=== PATIENT | male | born 1955 | race Caucasian/White ===

== ENCOUNTER 2017-11-14 18:01 | Inpatient (IN) | payer MEDICARE, OTHER ==
[~2017-11-14] VITALS: Ht 167.6 cm; Wt 68.0 kg
[2017-11-14 18:20] VITALS: BP 154/80
[2017-11-14 18:57] LABS: BASOPHILS # (AUTO) 0.7 /CMM (0.0-0.2); BASOPHILS % (AUTO) 2.8 % (0.0-2.0); EOSINOPHILS # (AUTO) 0.1 /CMM (0.0-0.7); EOSINOPHILS % (AUTO) 0.3 % (0.0-6.0); HEMATOCRIT 31 % (39-51); HEMOGLOBIN 10.7 g/dL (13.5-17.5); LYMPHOCYTES # (AUTO) 1.7 /CMM (0.8-4.8); LYMPHOCYTES % (AUTO) 7.4 % (20.0-44.0); MEAN CORPUSCULAR HEMOGLOBIN 30 PG (26.0-33.0); MEAN CORPUSCULAR HGB CONC 35 g/dl (31.0-36.0); MEAN CORPUSCULAR VOLUME 86 fL (80-96); MONOCYTES # (AUTO) 1.5 /CMM (0.1-1.30); MONOCYTES % (AUTO) 6.4 % (2.0-12.0); NEUTROPHILS # (AUTO) 19.5 /CMM (1.8-8.9); NEUTROPHILS % (AUTO) 83.1 % (43.0-81.0); PLATELET COUNT (AUTO) 498 /CMM (150-450); RDW COEFFICIENT OF VARIATION 15.3 (11.5-15.0); RED BLOOD CELL COUNT(AUTO) 3.61 MIL/uL (4.5-6.0); WHITE BLOOD COUNT (AUTO) 23.5 K/uL (4.3-11.0)
--- NOTE | 2017-11-14 18:58 | NUR ---
XRAY AT BEDSIDE
[2017-11-14] MEDS ORDERED: IV NS 0.9% 1,000 ML BAG IV ONE (19:00)
--- NOTE | 2017-11-14 19:00 | NUR ---
PRINCIPAL SCIENTIST AT BEDSIDE
[2017-11-14 19:08] LABS: CALCIUM, SERUM 9.8 mg/dL (8.5-10.1); CARBON DIOXIDE 28 mmol/L (21-32); CHLORIDE 94 mmol/L (98-107); CREATININE 1.3 mg/dL (0.6-1.3); GLUCOSE 109 mg/dL (74-106); POTASSIUM 5.4 mmol/L (3.5-5.1); SODIUM SERUM 129 mmol/L (136-145); UREA NITROGEN, BLOOD 61 mg/dL (7-18)
[2017-11-14 19:11] LABS: INR 0.94 (0.85-1.15)
[2017-11-14 19:13] LABS: ALANINE AMINOTRANSFERASE 57 U/L (12-78); ALBUMIN 3.1 g/dL (3.4-5.0); ALKALINE PHOSPHATASE 131 U/L (46-116); ASPARTATE AMINOTRANSFERASE 34 U/L (15-37); BILIRUBIN,DIRECT 0.1 mg/dL (0.0-0.2); BILIRUBIN,TOTAL 0.3 mg/dL (0.2-1.0); LIPASE 80 U/L (73-393); TOTAL PROTEIN, SERUM 8.6 g/dL (6.4-8.2)
[2017-11-14 19:15] LABS: TROPONIN I < 0.017 ng/mL (0.00-0.056)
[2017-11-14] MEDS ORDERED: ONDANSETRON HCL/PF 4 MG/2 ML VIAL ONE (19:17)
[2017-11-14] MEDS ORDERED: PIPERACILLIN /TAZOBACTAM 3.375 G VIAL IV ONE (19:17)
[2017-11-14] MEDS ORDERED: MORPHINE SULFATE INJ 4 MG/ML DISP.SYRIN ONE (19:18)
[2017-11-14] MEDS ORDERED: ONDANSETRON HCL/PF 4 MG/2 ML VIAL IV ONE (19:30)
[2017-11-14] MEDS ORDERED: MORPHINE SULFATE INJ 4 MG/ML DISP.SYRIN IV ONE (19:30)
[2017-11-14] MEDS ORDERED: PIPERACILLIN /TAZOBACTAM 3.375 G in IV D5W 50 ML IV ONE (19:30)
[2017-11-14 19:32] LABS: BAND % (MANUAL) 13 % (0.0-5.0); EOSINOPHILS % (MANUAL) 2 % (0-4); LYMPHOCYTES % (MANUAL) 10 % (16-48); MONOCYTES % (MANUAL) 6 % (0-11.0); NEUTROPHILS % (MANUAL) 69 (42-76)
--- NOTE | 2017-11-14 19:34 | NUR ---
PT OFF TO CT WITH NASCAR DRIVER AND RT
[2017-11-14] MEDS ORDERED: DOCU50LI GT (19:36)
[2017-11-14] MEDS ORDERED: ALPR0.25 GT (19:36)
[2017-11-14] MEDS ORDERED: HYDR-552 GT (19:36)
[2017-11-14] MEDS ORDERED: OLAN5TAB3 GT (19:36)
[2017-11-14] MEDS ORDERED: MELA1TAB9 PO (19:36)
[2017-11-14] MEDS ORDERED: LATA2.5D7 EACHEYE (19:36)
[2017-11-14 20:23] VITALS: BP 147/73
[2017-11-14] MEDS ORDERED: MAG HYDROX/AL HYDROX/SIMETH 30 ML UDC PO PRN (20:30)
[2017-11-14] MEDS ORDERED: ONDANSETRON HCL/PF 4 MG/2 ML VIAL IVP PRN (20:30)
[2017-11-14] MEDS ORDERED: MAGNESIUM HYDROXIDE 30 ML UDC PO PRN (20:30)
--- NOTE | 2017-11-14 20:31 | NUR ---
NO URINE IN VALERA CATH INTACT. FLUSHED GT WITH 100 CC OF STERILE WATER. AWAITING URINE PRODUCTION FOR LAB BLUEPRINT MACHINE OPERATOR
--- NOTE | 2017-11-14 21:00 | NUR ---
RN NOTE RECEIVED REPORT FROM RICH WALKER FOR CONTINUITY OF CARE.
--- NOTE | 2017-11-14 21:10 | NUR ---
RN NOTE ENDORSE REPORT TO NILAY WALKER FOR CONTINUITY OF CARE.
[2017-11-14] MEDS: ALPRAZOLAM 0.25 MG TABLET GT PRN (21:34)
[2017-11-14] MEDS: ACETAMINOPHEN 650 MG/20.3 ML UDC PO PRN (21:34)
[2017-11-14] MEDS: OLANZAPINE 5 MG TABLET GT SCH (21:34)
--- NOTE | 2017-11-14 21:50 | NUR ---
RN INITIAL NOTE RECEIVED PATIENT IN NO ACUTE DISTRESS IN BED, NO CARDIAC OR RESPIRATORY DISTRESS NOTED. PATIENT ON MECHANICAL VENT VIA TRACH, SETTINGS ORDERED. PATIENT AOX2, ABLE TO MOUTH RESPONSES, REPORTING PAIN HAS MORPHINE PUMP IMPLANT IN PLACE, BUT PATIENT MOUTHING PUMP IS NOT WORKING. VALERA CATHETER CLEAN DRY AND INTACT, COLOSTOMY DRAINING BROWN, SOFT STOOL, PEG TUBE FLUSHING WELL, CURRENTLY NPO. R FOOT #20G IV PATENT FLUSHES WELL, SITE CLEAN, DRY AND INTACT. SAFETY MAINTAINED BED LOCKED IN LOW POSITION, SIDE RAILS X3, CALL LIGHT AT BEDSIDE, WILL CONTINUE TO MONITOR FOR TALHA.
[2017-11-14] MEDS ORDERED: Medication Not On Formulary EA (Melatonin 1 MG) PO SCH (22:00)
[2017-11-14] MEDS: LATANOPROST EYE DROP 0.005% 2.5 ML BOTTLE EACHEYE SCH (22:17)
[2017-11-14] MEDS: ZOLPIDEM TARTRATE 5 MG TABLET PO PRN (23:21)
[2017-11-14] MEDS: IV NS 0.9% 1,000 ML IV PRN (23:22)
[2017-11-14] MEDS: PIPERACILLIN /TAZOBACTAM 3.375 G in IV D5W 50 ML IV SCH (23:23)
[2017-11-15] VITALS: BP 92/41
[2017-11-15] MEDS: MORPHINE SULFATE INJ 4 MG/ML DISP.SYRIN IV PRN ×2 (02:10→10:25)
[2017-11-15 04:00] VITALS: BP_SYST 112; BP_SYST 158; BP_DIAS 74; BP_DIAS 84
[2017-11-15] MEDS: ACETAMINOPHEN 650 MG/20.3 ML UDC PO PRN (05:15)
[2017-11-15] MEDS: PIPERACILLIN /TAZOBACTAM 3.375 G in IV D5W 50 ML IV SCH ×4 (05:15→23:39)
--- NOTE | 2017-11-15 06:43 | NUR ---
RN CLOSING NOTE PATIENT RESTING COMFORTABLY IN BED, RESTLESS DURING SHIFT PT GIVEN PRN MEDICATION FOR ANXIETY, NEEDS REINFORCEMENT ON RELAXATION TECHNIQUES. NO RESPIRATORY DISTRESS NOTED, TRACH TO VENT ON SETTINGS ORDERED. SAFETY MAINTAINED BED IN LOW AND LOCKED POSITION. WILL ENDORSE REPORT TO AM RN FOR TALHA.
--- NOTE | 2017-11-15 07:15 | NUR ---
RN INITIAL NOTES: REC'D PT AWAKE ON BED, A/O X 2-3, ABLE TO MOUTH WORDS. ON MV VIA TRACH, NO SOB. ON TELEMONITOR, SR. HAS R FT G20, PL, PATENT & INTACT W/ NO S/SX OF INFECTION/INFILTRATION NOTED, W/ NS X 100 CC/HR INFUSING WELL. HAS GT CLAMPED AT THIS TIME. HAS FC, NO URINE OUTPUT NOTED. HAS COLOSTOMY BAG IN PLACE. PROVIDED COMFORT & SAFETY MEASURES. BED KEPT LOW & IN LOCKED POS. CALL LIGHT PLACED W/IN REACH. WILL CONTINUE TO MONITOR & ATTEND PT NEEDS.
[2017-11-15 08:00] VITALS: BP_SYST 122; BP_SYST 128; BP_DIAS 71; BP_DIAS 81
[2017-11-15] MEDS: PANTOPRAZOLE 40 MG VIAL IV SCH (08:54)
[2017-11-15] MEDS: DOCUSATE SODIUM LIQ 100 MG/10 ML UDC GT SCH ×2 (08:54→17:06)
[2017-11-15] MEDS: Z GUARD REMEDY 2 OZ OINT TP PRN (08:54)
[2017-11-15 08:57] LABS: ALBUMIN 2.4 g/dL (3.4-5.0); BILIRUBIN,DIRECT 0.3 mg/dL (0.0-0.2); BILIRUBIN,TOTAL 0.6 mg/dL (0.2-1.0); CALCIUM, SERUM 8.9 mg/dL (8.5-10.1); CREATININE 1.6 mg/dL (0.6-1.3); MAGNESIUM 2.7 mg/dL (1.8-2.4); POTASSIUM 5.8 mmol/L (3.5-5.1); TOTAL PROTEIN, SERUM 7.4 g/dL (6.4-8.2)
[2017-11-15 09:07] LABS: BASOPHILS % (AUTO) 0.3 % (0.0-2.0); EOSINOPHILS % (AUTO) 0.1 % (0.0-6.0); HEMATOCRIT 26 % (39-51); HEMOGLOBIN 8.7 g/dL (13.5-17.5); LYMPHOCYTES # (AUTO) 0.9 /CMM (0.8-4.8); LYMPHOCYTES % (AUTO) 5.7 % (20.0-44.0); MEAN CORPUSCULAR HEMOGLOBIN 29 PG (26.0-33.0); MEAN CORPUSCULAR HGB CONC 33 g/dl (31.0-36.0); MEAN CORPUSCULAR VOLUME 87 fL (80-96); MONOCYTES # (AUTO) 1.3 /CMM (0.1-1.30); MONOCYTES % (AUTO) 8.4 % (2.0-12.0); NEUTROPHILS # (AUTO) 12.7 /CMM (1.8-8.9); NEUTROPHILS % (AUTO) 85.5 % (43.0-81.0); PLATELET COUNT (AUTO) 308 /CMM (150-450); RDW COEFFICIENT OF VARIATION 16.1 (11.5-15.0); RED BLOOD CELL COUNT(AUTO) 3.02 MIL/uL (4.5-6.0); WHITE BLOOD COUNT (AUTO) 14.9 K/uL (4.3-11.0)
[2017-11-15] MEDS: IV NS 0.9% 1,000 ML IV PRN (10:25)
--- NOTE | 2017-11-15 11:00 | NUR ---
RN NOTES: PT SEEN & EXAMINED BY DR. SOLER W/ ORDERS MADE & CARRIED OUT. MD MADE AWARE RE: NO URINE OUTPUT. BLADDER SCAN DONE, >300 CC. FC REMOVED AND REPLACED A NEW ONE PER MD'S ORDER, + URINE OF >600 CC. EPISODE OF HYPOTENSION, BP 84/64. MD MADE AWARE PER MD, KEEP NPO FOR NOW EXCEPT MEDS. MD TO REVIEW PT'S CASE.
[2017-11-15] MEDS ORDERED: SODIUM POLYSTYRENE SULFONATE 15 G/60 ML BOTTLE PO ONE (11:30)
[2017-11-15 12:00] VITALS: BP 102/64
--- NOTE | 2017-11-15 14:39 | NUR ---
RN NOTES: DR. SOLER ORDERS MADE AND CARRIED OUT: - HEPARIN 5000 UNITS SQ Q12H - DECREASE DOSE OF MOSO4 TO 1 MG IVP Q4H PRN - START TUBE FEEDING GLYTROL X 60CC/HR - DO SPUTUM, URINE, AND WOUND CULTURE - SLIDING SCALE (MILD) Q6H WHILE ON TF - WOUND CARE CONSULT
[2017-11-15 14:55] LABS: IRON, SERUM 10 ug/dl (50-175); TOTAL IRON BINDING CAPACITY 195 ug/dl (250-450)
[2017-11-15] MEDS ORDERED: GLYTROL 1,000 ML BAG GT PRN (15:00)
[2017-11-15] MEDS ORDERED: DEXTROSE 50%-WATER 50 ML DISP.SYRIN IV PRN (15:00)
[2017-11-15] MEDS: ALPRAZOLAM 0.25 MG TABLET GT PRN (15:26)
--- NOTE | 2017-11-15 15:49 | NUR ---
RN NOTES: PT SEEN & EXAMINED BY EAGLE LANGLEY. INFORMED HER THAT MRI CANNOT BE DONE D/T PRESENCE OF MORPHINE PUMP AND PER [facility], THEY CANNOT DO MRI FOR VENT PT.
--- NOTE | 2017-11-15 15:52 | NUR ---
RN NOTES: PER RD RECOMMENDATION TO INCREASE TF TO 70 CC/HR.
[2017-11-15 16:00] VITALS: BP 120/68
[2017-11-15 16:35] LABS: OCCULT BLOOD STOOL NEGATIVE (NEGATIVE)
[2017-11-15] MEDS: BLOOD SUGAR DIAGNOSTIC 1 EACH STRIP IN SCH ×2 (17:06→23:38)
[2017-11-15] MEDS: INSULIN REGULAR, HUMAN 100 UNIT/ML 3 ML VIAL SQ PRN ×2 (17:09→23:39)
[2017-11-15] MEDS: GLYTROL 1,000 ML BAG GT PRN (17:11)
--- NOTE | 2017-11-15 19:00 | NUR ---
RN CLOSING NOTES: NO ACUTE CHANGES NOTED W/IN SHIFT. PT TOLERATED MV SETTINGS VIA TRACH. ON TELEMONITOR, STILL SR. R FT G20, PL, KEPT PATENT & INTACT W/ NO S/SX OF INFECTION/INFILTRATION NOTED, W/ NS X 100 CC/HR INFUSING WELL. INITIALLY STARTED ON TF VIA GT, GLYTROL X 30 CC/HR INFUSING WELL, NO RESIDUAL UPON CHECKING, GOAL RATE IS 70 CC/HR. NEW FC KEPT PATENT & INTACT DRAINING TO ADEQUATE URINE OUTPUT. COLOSTOMY BAG KEPT IN PLACE, DRAINED OUTPUT, S/P KAYEXALATE. S/E BY NERA. KEPT WELL RESTED. NEEDS ATTENDED. BED KEPT LOW & IN LOCKED POS. CALL LIGHT PLACED W/IN REACH. ENDORSED TO PM RN FOR TALHA.
[2017-11-15] MEDS ORDERED: OXYMETAZOLINE HCL NASAL SPRAY 30 ML BOTTLE NS ONE (19:29)
--- NOTE | 2017-11-15 19:45 | NUR ---
RECEIVED PATIENT IN BED, PATIENT IS AGITATED, RESTLESS, PATIENT JUST PULLED OUT G TUBE AND PULLING ON THE VALERA CATH TUBING - SLIGHTLY PINK URINE OUTPUT NOTED VALERA CATH TUBING INSERTED INTO THE G TUBE SPACE TO KEEP IT OPEN.
[2017-11-15 20:00] VITALS: BP 100/61
--- NOTE | 2017-11-15 20:00 | NUR ---
MD NOTIFIED OF PATIENT'S CONDITION ORDERS RECEIVED, RESTRAINS APPLIED CONTINUE TO MONITOR
[2017-11-15] MEDS: OLANZAPINE 5 MG TABLET GT SCH (22:00)
[2017-11-15] MEDS: HEPARIN SODIUM, PORCINE 5000 UNITS/1 ML VIAL SQ SCH (22:19)
[2017-11-15] MEDS: LATANOPROST EYE DROP 0.005% 2.5 ML BOTTLE EACHEYE SCH (22:20)
[2017-11-15] MEDS: IV D5/0.45 NACL 1,000 ML IV PRN (22:20)
[2017-11-16] VITALS: BP 96/51
[2017-11-16 04:00] VITALS: BP_SYST 120; BP_SYST 96; BP_DIAS 51; BP_DIAS 52
[2017-11-16] MEDS: BLOOD SUGAR DIAGNOSTIC 1 EACH STRIP IN SCH ×4 (05:36→23:21)
[2017-11-16] MEDS: INSULIN REGULAR, HUMAN 100 UNIT/ML 3 ML VIAL SQ PRN ×2 (05:37→23:21)
[2017-11-16] MEDS: PIPERACILLIN /TAZOBACTAM 3.375 G in IV D5W 50 ML IV SCH ×4 (05:38→23:22)
[2017-11-16 07:34] LABS: BASOPHILS % (AUTO) 0.3 % (0.0-2.0); EOSINOPHILS # (AUTO) 0.1 /CMM (0.0-0.7); EOSINOPHILS % (AUTO) 1.1 % (0.0-6.0); HEMATOCRIT 26 % (39-51); HEMOGLOBIN 8.7 g/dL (13.5-17.5); LYMPHOCYTES # (AUTO) 1.1 /CMM (0.8-4.8); LYMPHOCYTES % (AUTO) 8.9 % (20.0-44.0); MEAN CORPUSCULAR HEMOGLOBIN 29 PG (26.0-33.0); MEAN CORPUSCULAR HGB CONC 33 g/dl (31.0-36.0); MEAN CORPUSCULAR VOLUME 88 fL (80-96); MONOCYTES # (AUTO) 1.1 /CMM (0.1-1.30); MONOCYTES % (AUTO) 8.4 % (2.0-12.0); NEUTROPHILS # (AUTO) 10.2 /CMM (1.8-8.9); NEUTROPHILS % (AUTO) 81.3 % (43.0-81.0); PLATELET COUNT (AUTO) 313 /CMM (150-450); RDW COEFFICIENT OF VARIATION 16.8 (11.5-15.0); WHITE BLOOD COUNT (AUTO) 12.5 K/uL (4.3-11.0)
[2017-11-16 07:54] LABS: CALCIUM, SERUM 9.2 mg/dL (8.5-10.1); CREATININE 1.3 mg/dL (0.6-1.3); MAGNESIUM 2.7 mg/dL (1.8-2.4); PHOSPHORUS 4.1 mg/dL (2.5-4.9); POTASSIUM 3.2 mmol/L (3.5-5.1)
[2017-11-16 08:00] VITALS: BP_SYST 103; BP_SYST 95; BP_DIAS 53; BP_DIAS 62
--- NOTE | 2017-11-16 08:00 | NUR ---
MS RN RECEIVED ON BED, AWAKE,ABLE TO SPEAK MOUTH WORDS, VENT DEPENDENT PATIENT, COLOSTOMY INTACT W/ BROWNISH LIQUID OUTPUT,VALERA CATH INTACT W/ YELLOWISH URINE OUTPUT, CAME IN W/ G TUBE REMOVED, REPLACED W/ VALERA CATHETER G TUBE, NO RESIDUAL, CANT FLUSH, MALFUCTIONING, MD SOLER IS AWARE.
[2017-11-16] MEDS: DOCUSATE SODIUM LIQ 100 MG/10 ML UDC GT SCH ×2 (09:00→17:00)
--- NOTE | 2017-11-16 09:00 | NUR ---
MS RN DUE IV MEDS GIVEN,NO DISTRESS NOTED.
[2017-11-16] MEDS: PANTOPRAZOLE 40 MG VIAL IV SCH (09:38)
[2017-11-16] MEDS: HEPARIN SODIUM, PORCINE 5000 UNITS/1 ML VIAL SQ SCH ×2 (09:44→22:25)
[2017-11-16] MEDS ORDERED: POTASSIUM CHLORIDE 20 MEQ POWDER PACKET NG SCH (10:30)
--- NOTE | 2017-11-16 11:35 | NUR ---
MS RN WAS SEEN BY DR. SOLER W/ LARRY TO REMOVE RESTRAIN.
[2017-11-16 12:00] VITALS: BP 95/62
--- NOTE | 2017-11-16 13:00 | NUR ---
MS RN RESTRMIGUEL PUT BACK, PATIENT BIT HIS RIGHT HAND, BLEEDING NOW.
[2017-11-16] MEDS: IV D5/0.45 NACL 1,000 ML IV PRN (13:32)
[2017-11-16] MEDS: POTASSIUM CL. PREMIX PERIPHER. 50 ML IV SCH ×2 (14:30→16:00)
[2017-11-16 16:00] VITALS: BP 95/59
[2017-11-16] MEDS: MORPHINE SULFATE INJ 4 MG/ML DISP.SYRIN IV PRN (16:00)
[2017-11-16 20:00] VITALS: BP 146/76
[2017-11-16] MEDS: DOXYCYCLINE HYCLATE (100 MG) 100 MG TABLET PO SCH (21:00)
--- NOTE | 2017-11-16 21:00 | NUR ---
RN NOTES MIDLINE TO LEFT ARM INSERTED, PROCEDURE WELL TOLERATED. INTACT AND PATENT. NO BLEEDING OR SWELLING NOTED. WILL CONTINUE TO MONITOR
[2017-11-16] MEDS: OLANZAPINE 5 MG TABLET GT SCH (22:00)
[2017-11-16] MEDS: LATANOPROST EYE DROP 0.005% 2.5 ML BOTTLE EACHEYE SCH (22:30)
[2017-11-17] VITALS: BP 121/60
--- NOTE | 2017-11-17 01:37 | NUR ---
RN NOTES RECEIVED PATIENT AWAKE IN BED WITH FAMILY AT BEDSIDE. NO RESPIRATORY DISTRESS OR SHORTNESS OF BREATH. BREATHING EVEN AND UNLABORED. VENT SETTING WELL TOLERATED. NO COMPLAINT OF PAIN OF THIS TIME. RESTRAINT TO LEFT WRIST IN PLACE. COLOSTOMY BAG INTACT. VALERA CATHETER IN PLACE DRAINING CLEAR YELLOW WITH NO FOUL ODOR URINE. NPO. KEPT CLEAN AND DRY. WILL CONTINUE TO MONITOR.
[2017-11-17] MEDS: IV D5/0.45 NACL 1,000 ML IV PRN ×3 (01:58→23:10)
[2017-11-17 04:00] VITALS: BP 147/85
[2017-11-17] MEDS: PIPERACILLIN /TAZOBACTAM 3.375 G in IV D5W 50 ML IV SCH ×4 (06:08→23:17)
[2017-11-17] MEDS: BLOOD SUGAR DIAGNOSTIC 1 EACH STRIP IN SCH ×4 (06:09→23:10)
[2017-11-17 07:15] LABS: CALCIUM, SERUM 9.1 mg/dL (8.5-10.1); CREATININE 1.1 mg/dL (0.6-1.3)
[2017-11-17 07:18] LABS: POTASSIUM 2.5 mmol/L (3.5-5.1)
--- NOTE | 2017-11-17 07:39 | NUR ---
RN OPENING NOTES: PATIENT RESTING IN BED, ON VENT SETTINGS VIA TRACH. PATIENT ABLE TO MOUTH VERB, AND MAKE NEEDS KNOWN. IN NO APPARENT DISTRESS, HOWEVER WHEN ASKED IN PAIN SAYS YES, UNABLE TO DETERMINE LEVEL OF PAIN , LOCATION. PATIENT NPO STATUS, ON GTUBE, PREVIOURSLY PULLED OUT BY PATIENT, VALERA IN REPLACEMENT. RIGHT UPPER ARM MIDLINE INFUSING D51/2NS AT X 100 CC/HR INFUSING WELL. FC IN PLACE INTACT DRAINING TO YELLOW URINE TOTAL OUTPUT IN REPAIR TECHNICIAN 1000CC. BILATERAL WRIST RESTRAINTS . COLOSTOMY BAG KEPT IN PLACE D/T SACRAL WOUND. SAFETY MEASURES RENDERED, BED KEPT LOW & IN LOCKED POS. CALL LIGHT PLACED W/IN REACH. WILL CONTINUE TO MONITOR.
[2017-11-17 08:00] VITALS: BP 171/85
[2017-11-17] MEDS: DOCUSATE SODIUM LIQ 100 MG/10 ML UDC GT SCH ×2 (08:21→16:06)
[2017-11-17] MEDS: DOXYCYCLINE HYCLATE (100 MG) 100 MG TABLET PO SCH ×2 (08:21→20:45)
[2017-11-17] MEDS: HEPARIN SODIUM, PORCINE 5000 UNITS/1 ML VIAL SQ SCH ×2 (08:41→20:43)
[2017-11-17] MEDS: MORPHINE SULFATE INJ 4 MG/ML DISP.SYRIN IV PRN ×2 (08:43→13:10)
[2017-11-17] MEDS: PANTOPRAZOLE 40 MG VIAL IV SCH (08:43)
--- NOTE | 2017-11-17 08:45 | NUR ---
TELE/RN NOTES PATIENT ABLE TO MOUTH VERB AND COMMUNICATE PAIN, COMPLAINTS OF ABDOMINAL AND LOWE LEG PAIN UNABLE TO RATE LEVEL OF PAIN. ADMINISTERED MORPHINE SULFATE 1MG 0.25ML EVERY4 HOURS NEEDED FOR PAIN. WILL MONITOR FOR EFFECTIVENESS
[2017-11-17 09:01] LABS: BASOPHILS % (AUTO) 0.3 % (0.0-2.0); EOSINOPHILS # (AUTO) 0.1 /CMM (0.0-0.7); HEMATOCRIT 28 % (39-51); HEMOGLOBIN 9.3 g/dL (13.5-17.5); LYMPHOCYTES # (AUTO) 1.4 /CMM (0.8-4.8); MEAN CORPUSCULAR HEMOGLOBIN 29 PG (26.0-33.0); MEAN CORPUSCULAR HGB CONC 33 g/dl (31.0-36.0); MEAN CORPUSCULAR VOLUME 89 fL (80-96); MONOCYTES # (AUTO) 0.8 /CMM (0.1-1.30); MONOCYTES % (AUTO) 7.7 % (2.0-12.0); NEUTROPHILS # (AUTO) 7.9 /CMM (1.8-8.9); PLATELET COUNT (AUTO) 358 /CMM (150-450); RDW COEFFICIENT OF VARIATION 16.4 (11.5-15.0); RED BLOOD CELL COUNT(AUTO) 3.17 MIL/uL (4.5-6.0); WHITE BLOOD COUNT (AUTO) 10.3 K/uL (4.3-11.0)
--- NOTE | 2017-11-17 10:45 | NUR ---
TELE/RN NOTES GI CONULT PENDING. EAGLE LANGLEY NOTIFIED AND WILL MAKE A VISIT TODAY. WILL F/U
[2017-11-17 12:00] VITALS: BP 152/78
[2017-11-17] MEDS ORDERED: POTASSIUM CHLORIDE 10 MEQ/50 ML PREMIXED IVPB FOR PERIPHERAL LINE IV ONE (12:00)
--- NOTE | 2017-11-17 12:00 | NUR ---
TELE/RN NOTES MD NOTIFIED OF PATIENTS POTASSIUM LEVEL 2.5. ORDER RECIEVED AND PROCESSED FOR 80MEQIV BAG. WILL CONTINUE TO MONITOR PATIENT FOR S/S OF HYPOKALEMIA.
--- NOTE | 2017-11-17 12:20 | NUR ---
WOUND CARE CONSULT: PT FOLLOWED BY PLASTIC SURGICAL TEAM FOR WOUND AND SKIN TREATMENT. DEFER TO SURGICAL TEAM AT THIS TIME FOR WOUND TREATMENT PLAN. ALL SKIN PROTECTION AND PRESSURE ULCER PREVENTION MEASURES IN PLACE AND DISCUSSED WITH NURSING STAFF. CURRENT LYNN SCORE IS 10.
[2017-11-17] MEDS: SPIRONOLACTONE 25 MG TABLET PO SCH (13:00)
[2017-11-17] MEDS: Potassium Chloride 10 MEQ in IV D5W 50 ML IV SCH ×8 (13:08→20:42)
--- NOTE | 2017-11-17 13:15 | NUR ---
TELE/RN NOTES PATIENT COMPLAINTS OF CONTINUOUS ABDOMINAL PAIN , APPEARS AGITATED AND RESTLESS. ADMINISTERED 1 MG MORPHINE SULFATE 0.25ML VIA IV PUSH. ORDERS OBTAINED BY RYDER/ZENAIDA GUILLERMO FOR ATIVAN 1MG IV PUSH EVERY 6 HOURS PRN. WILL MONITOR PT AND OBSERVE FOR EFFECTIVENESS
[2017-11-17] MEDS: LORAZEPAM INJ 2 MG/ML VIAL IV PRN ×2 (14:54→20:43)
--- NOTE | 2017-11-17 18:52 | NUR ---
tele/rn notes spoke to patients blanca Mcpherson to obtain consent for EGD however son stated that he would like to discuss this matter with his mother Jocelyne, Patient's first before agreeing to procedure. provided number to call and provide consent. will endorse to delonte shit.
--- NOTE | 2017-11-17 19:30 | NUR ---
TELE/RN CLOSING NOTE PATIENT IN BED ALERT AND ORIENTED, IN NO APPARENT DISTRESS, ON TRACH WITH VENT SETTINGS TOLERATING SETTINGS WELL. COMPLAINTS OF EXCRUCIATING ABDOMINAL PAIN, PAIN MANAGED WITH MORPHINE SULF 1 MG VIA IV PUSH EVERY 4 HOURS NEEDED. ALL DUE MEDICATIONS GIVEN ALL NEEDS MET AND ATTENDED. 80 MEQ POTASSIUM REPLENISHED, 1 BAGS REMAINING TO BE SCANNED AND HUNG. IV ZOSYN INFUSING WELL. PATIENT RE-POSITIONED EVERY 2 HOURS, SKIN/WOUND CARE DONE. PT KEPT CLEAN AND COMFORTABLE. WILL ENDORSE CARE TO WASTE OIL PUMPER FOR TALHA.
[2017-11-17 20:00] VITALS: BP_SYST 170; BP_SYST 174; BP_DIAS 72; BP_DIAS 86
[2017-11-17] MEDS: OLANZAPINE 5 MG TABLET GT SCH (22:00)
[2017-11-17] MEDS: LATANOPROST EYE DROP 0.005% 2.5 ML BOTTLE EACHEYE SCH (22:23)
[2017-11-18] VITALS: BP 148/87
--- NOTE | 2017-11-18 02:42 | NUR ---
RN NOTES IN BED AWAKE WATCHING TV WITH NO RESPIRATORY DISTRESS OR SHORTNESS OF BREATH. BREATHING EVEN AND UNLABORED. NO COMPLAINT OF PAIN OF THIS TIME. HEAD OF BED ELEVATED. VALERA CATH IN PLACE AND INTACT DRAINING CLEAR YELLOW WITH NO FOUL ODOR URINE. FAMILY CAME AND SIGNED THE CONSENT FORM FOR EGD WITH PEG TUBE PLACEMENT, MILD SEDATION AND BLOOD TRANSFUSION. KEPT CLEAN AND DRY. WILL CONTINUE TO MONITOR.
[2017-11-18 04:00] VITALS: BP_SYST 157; BP_SYST 178; BP_DIAS 102; BP_DIAS 86
[2017-11-18] MEDS: PIPERACILLIN /TAZOBACTAM 3.375 G in IV D5W 50 ML IV SCH ×4 (06:15→23:12)
[2017-11-18] MEDS: IV D5/0.45 NACL 1,000 ML IV PRN ×2 (06:16→20:25)
[2017-11-18] MEDS: BLOOD SUGAR DIAGNOSTIC 1 EACH STRIP IN SCH ×4 (06:16→23:12)
[2017-11-18] MEDS: INSULIN REGULAR, HUMAN 100 UNIT/ML 3 ML VIAL SQ PRN ×3 (06:17→23:57)
--- NOTE | 2017-11-18 07:45 | NUR ---
CAREER GUIDANCE TECHNICIAN OPENING NOTE RECEIVED BEDSIDE SBAR REPORT ON THE PATIENT. PATIENT IS ON A VENTILATOR. VENTILATOR IS PLUGGED INTO THE RED OUTLET. SETTINGS ORDERED. PATIENT IS NPO. PATIENT IS ASLEEP IN BED, EASILY AWAKEN. BED IS LOCKED IN LOWEST POSITION, SIDE RAILS UP X3, BED ALARM IS ON. PATIENT IS IN SEMI-BARAHONA'S POSITION. CALL LIGHT WITHIN REACH. PATIENT IS EDUCATED TO CALL FOR ASSISTANCE USING THE CALL LIGHT. VERBALIZED UNDERSTANDING. PATIENT IS ABLE TO COMMUNICATE NEEDS VIA COMMUNICATION BOARD. ALL NEEDS ARE MET. NO S/S OF DISTRESS, PAIN/DISCOMFORT. EXTERNAL MONITOR READING SR 86. WILL CONTINUE TO ASSESS/MONITOR THROUGHOUT THE SHIFT.
[2017-11-18 08:00] VITALS: BP_SYST 115; BP_SYST 149; BP_DIAS 71; BP_DIAS 96
[2017-11-18] MEDS: HEPARIN SODIUM, PORCINE 5000 UNITS/1 ML VIAL SQ SCH ×2 (09:00→20:36)
[2017-11-18] MEDS: DOCUSATE SODIUM LIQ 100 MG/10 ML UDC GT SCH ×2 (09:00→17:00)
[2017-11-18] MEDS: DOXYCYCLINE HYCLATE (100 MG) 100 MG TABLET PO SCH ×2 (09:00→20:35)
[2017-11-18] MEDS: SPIRONOLACTONE 25 MG TABLET PO SCH (09:00)
[2017-11-18 09:24] LABS: BASOPHILS % (AUTO) 0.3 % (0.0-2.0); EOSINOPHILS # (AUTO) 0.2 /CMM (0.0-0.7); EOSINOPHILS % (AUTO) 1.6 % (0.0-6.0); HEMATOCRIT 28 % (39-51); HEMOGLOBIN 9.4 g/dL (13.5-17.5); LYMPHOCYTES # (AUTO) 1.4 /CMM (0.8-4.8); LYMPHOCYTES % (AUTO) 15.5 % (20.0-44.0); MEAN CORPUSCULAR HEMOGLOBIN 29 PG (26.0-33.0); MEAN CORPUSCULAR HGB CONC 33 g/dl (31.0-36.0); MEAN CORPUSCULAR VOLUME 88 fL (80-96); MONOCYTES # (AUTO) 0.7 /CMM (0.1-1.30); MONOCYTES % (AUTO) 7.5 % (2.0-12.0); NEUTROPHILS # (AUTO) 6.9 /CMM (1.8-8.9); NEUTROPHILS % (AUTO) 75.1 % (43.0-81.0); PLATELET COUNT (AUTO) 368 /CMM (150-450); RDW COEFFICIENT OF VARIATION 16.3 (11.5-15.0); RED BLOOD CELL COUNT(AUTO) 3.23 MIL/uL (4.5-6.0); WHITE BLOOD COUNT (AUTO) 9.3 K/uL (4.3-11.0)
[2017-11-18 09:38] LABS: CALCIUM, SERUM 9.3 mg/dL (8.5-10.1); CREATININE 0.9 mg/dL (0.6-1.3); MAGNESIUM 1.7 mg/dL (1.8-2.4); PHOSPHORUS 3.2 mg/dL (2.5-4.9); POTASSIUM 3.1 mmol/L (3.5-5.1)
--- NOTE | 2017-11-18 09:42 | NUR ---
PATIENT DESATURATED TO 92%. hr WENT TO 115 BMP. RN ALERTED THE RT. RT CHANGED THE FIO2 TO 35%. CURRENT SATURATION 96%. HR 85BMP. PATIENT COMPLAINS OF PAIN IN ABDOMINAL REGION. ADMINISTERING MORPHINE PRESCRIBED.
[2017-11-18] MEDS: MORPHINE SULFATE INJ 4 MG/ML DISP.SYRIN IV PRN ×2 (09:46→22:14)
[2017-11-18] MEDS: PANTOPRAZOLE 40 MG VIAL IV SCH (09:51)
--- NOTE | 2017-11-18 10:03 | NUR ---
G-TUBE MEDICATIONS HELP. PATIENT CURRENTLY DOES NOT HAVE A G-TUBE. HEPARIN HELD FOR PENDING PEG PLACEMENT/EGD.
--- NOTE | 2017-11-18 10:05 | NUR ---
REMOVED RIGHT REYNALDO IV REMOVED PER PEÑA SOLER'S STAFF OCCUPATIONAL THERAPIST.. OCCLUSIVE DRESSING APPLIED.
--- NOTE | 2017-11-18 11:00 | NUR ---
WOUND CARE PERFORMED. PATIENT TOLERATED WELL. COLOSTOMY BAG CHANGED.
--- NOTE | 2017-11-18 11:12 | NUR ---
PATIENT PULLED OUT THE VALERA THAT WAS PLACED IN THE G-TUBE SITE TO KEEP OPEN. RE-INSERTED A VALERA PER DR. SOLER.
--- NOTE | 2017-11-18 11:45 | NUR ---
SPO2 91%. RT ALERTED. RT INCREASED THE FIO2 TO 40%
[2017-11-18] MEDS: LORAZEPAM INJ 2 MG/ML VIAL IV PRN (11:52)
[2017-11-18 12:00] VITALS: BP_SYST 149; BP_SYST 190; BP_DIAS 111; BP_DIAS 96
--- NOTE | 2017-11-18 12:09 | NUR ---
PATIENT APPEARED TO BE ANXIOUS. RN ASKED THE PATIENT "ARE YOP ANXIOUS?" PATIENT ANSWERED "YES". ATIVAN ADMINISTERED PRESCRIBED.
[2017-11-18] MEDS ORDERED: hydrALAZINE HCL IV 20 MG VIAL IV STA (12:35)
--- NOTE | 2017-11-18 12:39 | NUR ---
PATIENT'S BLOOD PRESSURE ELEVATED. REPORTED TO DR RYDER [employer]EV[employer]'S [employer] MARKET DEALER. ZENAIDA STATED WILL PUT ORDERS FOR ANTIHYPERTENSIVE. AWAITING ORDERS.
[2017-11-18] MEDS ORDERED: POTASSIUM CHLORIDE 20 MEQ POWDER PACKET GT SCH (13:30)
[2017-11-18] MEDS: CLONIDINE HCL 0.1MG/24H PTWK 1 EA PATCH TD SCH (14:06)
--- NOTE | 2017-11-18 14:09 | NUR ---
POTASSIUM NOT ON THE FLOOR. AWAITING FOR THE PHARMACY TO DELIVER.
[2017-11-18] MEDS: POTASSIUM CL. PREMIX PERIPHER. 50 ML IV SCH ×4 (15:25→21:03)
[2017-11-18 16:00] VITALS: BP 178/98
[2017-11-18] MEDS: Magnesium 1GM/D5W 100ML PREMIX 100 ML IV SCH ×2 (16:57→22:15)
--- NOTE | 2017-11-18 18:50 | NUR ---
G-TUBE PLACEMENT COMPLETED BY DR JOHNSON AT THE BEDSIDE. TELEPHONE CONSENT OBTAINED FROM THE DAUGHTER.
--- NOTE | 2017-11-18 19:30 | NUR ---
PER DR JOHNSON G-TUBE OK TO BE USED FOR MEDS/FEEDING.
--- NOTE | 2017-11-18 19:35 | NUR ---
FOOD TRAY ASSEMBLER OPENING NOTES RECEIVED PT IN BED ALERT, AWAKE, RESPONSIVE. VENT DEPENDENT, TRACH PATENT, RESPIRATIONS EVEN, UNLABORED, NO RESPIRATORY DISTRESS NOTED..ABLE TO COMMUNICATE VIA COMMUNICATION BOARD. F/C IN PLACE DRAINING YELLOW COLOR URINE. IV SITE MONALISA MIDLINE INTACT, PATENT. CALL LIGHT WITHIN REACH, BED LOCKED IN LOWEST POSITION. KEPT CLEAN AND COMFORTABLE, ATTENDED ALL NEEDS. WILL CONTINUE TO MONITOR ACCORDINGLY.
--- NOTE | 2017-11-18 19:51 | NUR ---
PICTURE COPYIST CLOSING NOTE GAVE BEDSIDE SBAR REPORT ON THE PATIENT. PATIENT IS ON A VENTILATOR. VENTILATOR IS PLUGGED INTO THE RED OUTLET. SETTINGS ORDERED. G-TUBE IN PLACE. PER DR. JOHNSON X-RAY IS NOT NEEDED AND G-TUBE IS OK TO BE USED. PATIENT IS ASLEEP IN BED, EASILY AWAKEN. BED IS LOCKED IN LOWEST POSITION, SIDE RAILS UP X3, BED ALARM IS ON. PATIENT IS IN SEMI-BARAHONA'S POSITION. CALL LIGHT WITHIN REACH. PATIENT IS EDUCATED TO CALL FOR ASSISTANCE USING THE CALL LIGHT. VERBALIZED UNDERSTANDING. PATIENT IS ABLE TO COMMUNICATE NEEDS VIA COMMUNICATION BOARD. ALL NEEDS ARE MET. NO S/S OF DISTRESS, PAIN/DISCOMFORT. EXTERNAL MONITOR READING SR 85. SINCE PHARMACY DELIVERED MEDICATIONS PASSES SCHEDULE TWO BAGS OF POTASSIUM AND ONE BAG OF MAGNESIUM ARE TO BE ADMINISTERED BY APICULTURIST RN. ENDORSED TO AARON YO. ENDORSED TO THE APICULTURIST NURSE FOR TALHA.
[2017-11-18 20:00] VITALS: BP_SYST 148; BP_SYST 192; BP_DIAS 101; BP_DIAS 78
[2017-11-18] MEDS: OLANZAPINE 5 MG TABLET GT SCH (21:02)
[2017-11-18] MEDS: LATANOPROST EYE DROP 0.005% 2.5 ML BOTTLE EACHEYE SCH (21:02)
[2017-11-19] VITALS (7 sets, daily range): BP systolic 114–180; BP diastolic 69–100
[2017-11-19] MEDS: PIPERACILLIN /TAZOBACTAM 3.375 G in IV D5W 50 ML IV SCH ×4 (05:15→23:50)
[2017-11-19] MEDS: BLOOD SUGAR DIAGNOSTIC 1 EACH STRIP IN SCH ×3 (05:15→17:09)
--- NOTE | 2017-11-19 06:45 | NUR ---
VICE PRESIDENT OF SOFTWARE ENGINEERING CLOSING NOTES PT IN BED RESTING COMFORTABLY, VENT DEPENDENT, TRACH PATENT, NO RESPIRATORY DISTRESS NOTED. IV SITE INTACT, PATENT. NO S/SX OF PAIN OR DISCOMFORT NOTED. NSR 94.KEPT CLEAN AND COMFORTABLE, BED LOCKED IN LOWEST POSITION.ATTENDED ALL NEEDS. WILL ENDORSE TO THE DAY SHIFT
--- NOTE | 2017-11-19 07:15 | NUR ---
RN INITIAL NOTES: REC'D PT ASLEEP ON BED, A/O X 1-2, ABLE TO MOUTH WORDS. ON MV VIA TRACH, NO SOB. ON TELEMONITOR, SR. HAS WILL MIDLINE, PL, PATENT & INTACT W/ NO S/SX OF INFECTION/INFILTRATION NOTED, W/ 1/2 NS X 75 CC/HR INFUSING WELL. HAS GT CLAMPED AT THIS TIME. HAS FC DRAINING TO ADEQUATE URINE OUTPUT. HAS COLOSTOMY BAG IN PLACE. PROVIDED COMFORT & SAFETY MEASURES. BED KEPT LOW & IN LOCKED POS. CALL LIGHT PLACED W/IN REACH. WILL CONTINUE TO MONITOR & ATTEND PT NEEDS.
[2017-11-19 07:54] LABS: CALCIUM, SERUM 9.2 mg/dL (8.5-10.1); CREATININE 0.8 mg/dL (0.6-1.3); MAGNESIUM 1.6 mg/dL (1.8-2.4); POTASSIUM 3.1 mmol/L (3.5-5.1)
[2017-11-19] MEDS: DOCUSATE SODIUM LIQ 100 MG/10 ML UDC GT SCH ×2 (08:45→17:35)
[2017-11-19] MEDS: DOXYCYCLINE HYCLATE (100 MG) 100 MG TABLET PO SCH ×2 (08:45→21:21)
[2017-11-19] MEDS: PANTOPRAZOLE 40 MG VIAL IV SCH (08:45)
[2017-11-19] MEDS: SPIRONOLACTONE 25 MG TABLET PO SCH (08:45)
[2017-11-19] MEDS: Z GUARD REMEDY 2 OZ OINT TP PRN (08:46)
[2017-11-19] MEDS: HEPARIN SODIUM, PORCINE 5000 UNITS/1 ML VIAL SQ SCH ×2 (08:46→21:26)
--- NOTE | 2017-11-19 09:36 | NUR ---
RT RECEIVED PT TRACH'D WITH PORTEX #8 CUFFED. PT ON [facility] VENT WITH SETTINGS PER MD ORDER. STENO POOL SUPERVISOR DONE. BILATERAL RHONCHI BREATH SOUNDS ON AUSCULTATION. SUCTIONED SMALL AMOUNTS OF SEMI-THICK WHITE/KEITA SECRETIONS. VENT PLUGGED INTO RED OUTLET. ALARMS ON AND WORKING PROPERLY. AMBU BAG AT HEAD OF BED. NO SOB OR SIGNS OF DISTRESS NOTED AT THIS TIME. WILL CONTINUE TO MONITOR THE PATIENT FOR ANY CHANGES. Addendum: 11/19/17 at 1620 by JOSE A MOORE RT Amended: Links added.
--- NOTE | 2017-11-19 11:00 | NUR ---
RN NOTES: PER DR. SOLER, MAY START PREVIOUS TUBE FEEDING OF GLYTROL X 70 CC/HR. MAY DC CURRENT IVF.
[2017-11-19] MEDS: POTASSIUM CHLORIDE 20 MEQ POWDER PACKET NG SCH ×2 (11:47→13:16)
[2017-11-19] MEDS: Magnesium 1GM/D5W 100ML PREMIX 100 ML IV SCH ×3 (11:47→14:27)
[2017-11-19] MEDS: INSULIN REGULAR, HUMAN 100 UNIT/ML 3 ML VIAL SQ PRN ×2 (11:50→17:09)
[2017-11-19] MEDS: GLYTROL 1,000 ML BAG GT PRN (13:16)
[2017-11-19] MEDS: hydrALAZINE HCL IV 20 MG VIAL IV PRN (13:31)
--- NOTE | 2017-11-19 18:48 | NUR ---
RN CLOSING NOTES: NO ACUTE CHANGES NOTED W/IN SHIFT. PT TOLERATED MV SETTINGS VIA TRACH. ON TELEMONITOR, STILL SR. WILL MIDLINE, SL, KEPT PATENT & INTACT W/ NO S/SX OF INFECTION/INFILTRATION NOTED. INITIALLY STARTED ON TF VIA GT & TITRATED UP TO GOAL RATE, GLYTROL X 70 CC/HR INFUSING WELL, NO RESIDUAL UPON CHECKING. FC KEPT PATENT & INTACT DRAINING TO ADEQUATE URINE OUTPUT. COLOSTOMY BAG KEPT IN PLACE, DRAINED OUTPUT. KEPT ON SOFT WRIST RESTRAINT ON THE LEFT ARM. KEPT WELL RESTED. NEEDS ATTENDED. BED KEPT LOW & IN LOCKED POS. CALL LIGHT PLACED W/IN REACH. WILL ENDORSE TO PM RN FOR TALHA.
[2017-11-19] MEDS: OLANZAPINE 5 MG TABLET GT SCH (21:22)
[2017-11-19] MEDS: LATANOPROST EYE DROP 0.005% 2.5 ML BOTTLE EACHEYE SCH (21:23)
[2017-11-20] VITALS (8 sets, daily range): BP systolic 136–165; BP diastolic 71–100
[2017-11-20] MEDS: BLOOD SUGAR DIAGNOSTIC 1 EACH STRIP IN SCH ×5 (00:05→23:55)
[2017-11-20] MEDS: INSULIN REGULAR, HUMAN 100 UNIT/ML 3 ML VIAL SQ PRN ×4 (00:05→23:56)
[2017-11-20] MEDS: PIPERACILLIN /TAZOBACTAM 3.375 G in IV D5W 50 ML IV SCH ×3 (05:32→17:10)
[2017-11-20] MEDS: GLYTROL 1,000 ML BAG GT PRN ×2 (05:33→21:20)
--- NOTE | 2017-11-20 07:00 | NUR ---
RN NOTES: RECEIVED PT ON BED, ALERT , VENT/ TRACH DEPENDENT, TRACH CARE DONE, ON TELE SR HR IN 60'S AT TIME , WILL MIDLINE SITE CDI, GLYTROL AT 70CC/HR RUNNING VIA GT , VALERA DRAINING TO GRAVITY , COLOSTOMY BAG IN PLACE. SR UPx3, CALL LIGHT WITHIN EASY REACH, PROVIDED COMFORT & SAFETY MEASURES. BED LOCKED AND IN LOWEST POSITION ,CONTINUE TO MONITOR .
[2017-11-20] MEDS: SPIRONOLACTONE 25 MG TABLET PO SCH (08:52)
[2017-11-20] MEDS: DOXYCYCLINE HYCLATE (100 MG) 100 MG TABLET PO SCH ×2 (08:52→21:21)
[2017-11-20] MEDS: PANTOPRAZOLE 40 MG VIAL IV SCH (08:52)
[2017-11-20] MEDS: DOCUSATE SODIUM LIQ 100 MG/10 ML UDC GT SCH ×2 (08:54→17:10)
[2017-11-20] MEDS: HEPARIN SODIUM, PORCINE 5000 UNITS/1 ML VIAL SQ SCH ×2 (08:54→21:31)
--- NOTE | 2017-11-20 12:00 | NUR ---
RN NOTES TOLEAING TF WELL, NO RESIDUAL NOTED, VSS STABLE , CONTINUE TO MONITOR.
--- NOTE | 2017-11-20 18:39 | NUR ---
RN NOTES TRACH AND ORAL SUCTIONING DONE, PT STABLE , VALERA DRAINING TO GRAVITY WELL, COLOSTOMY BAG INTACT, TOLERATING TF WELL, DRESSING TO R ELBOW CDI, SR UP x3, CALL LIGHT WITHIN EASY REACH, WILL ENDORSE TO SPANNER OPERATOR NURSE FOR TALHA
[2017-11-20] MEDS: MORPHINE SULFATE INJ 4 MG/ML DISP.SYRIN IV PRN (19:01)
--- NOTE | 2017-11-20 19:20 | NUR ---
CHIEF MEDIA OFFICER NOTES, PATIENT IN CHEN ALERT AND ORIENTED, MOUTH WORDS AND USES COMMUNICATION BOARD TO COMMUNICATE NEEDS, NOTED PATIENT BITTING GAUZED DRESSING IN RIGHT HAND, REDIRECTION OF BEHAVIOR PROVIDED AND PATIENT VERBALIZED UNDERSTANDING, DRESSING REINFORCED AND TAPED BACK IN PLACE, MONALISA MIDLINE INTACT AND PATENT, F/C DRAINING YELLOW URINE BY GRAVITY, COLOSTOMY IN PLACE WITH MINIMAL AMOUNT OF SEMI-LIQUID STOOL. GTF INFUSING WELL AN PATIENT TOLERATED WELL, NO RESIDUAL NOTED AT THIS TIME, TOLERATED VENT SETTINGS WELL, HOB AT ALL TIMES FOR ASPIRATION PRECAUTIONS, ON ACUTE MEDICAL WRIST SOFT RESTRAINS, CIRCULATION WNL NO ABNORMALITY NOTED AT SITE, WITH PALPABLE BILATERAL PULSES NOTED, CALL LIGHT W/I REACH, WILL CONTINUE TO MONITOR CLOSELY.
[2017-11-20] MEDS: CEFEPIME 1 GM in IV NS 0.9% 50 ML IV SCH (21:20)
[2017-11-20] MEDS: OLANZAPINE 5 MG TABLET GT SCH (21:21)
[2017-11-20] MEDS: LATANOPROST EYE DROP 0.005% 2.5 ML BOTTLE EACHEYE SCH (21:51)
[2017-11-21] VITALS: BP 167/88
[2017-11-21] MEDS: MORPHINE SULFATE INJ 4 MG/ML DISP.SYRIN IV PRN ×3 (00:28→19:47)
[2017-11-21] MEDS: ZOLPIDEM TARTRATE 5 MG TABLET PO PRN (02:30)
[2017-11-21 04:00] VITALS: BP 103/64
[2017-11-21] MEDS: INSULIN REGULAR, HUMAN 100 UNIT/ML 3 ML VIAL SQ PRN (05:16)
[2017-11-21] MEDS: BLOOD SUGAR DIAGNOSTIC 1 EACH STRIP IN SCH ×3 (05:16→17:31)
--- NOTE | 2017-11-21 06:51 | NUR ---
RN CLOSING TELE NOTES, PATIENT IN BED SLEEPING , NO SIGNIFICANT CHANGE IN CONDITION THROUGHOUT THE SHIFT, MONALISA MIDLINE INTACT AND PATENT, F/C DRAINING YELLOW URINE BY GRAVITY, COLOSTOMY IN PLACE WITH 40ML AMOUNT OF SEMI-LIQUID STOOL. GTF INFUSING WELL AN PATIENT TOLERATED WELL, NO RESIDUAL NOTED AT THIS TIME, TOLERATED VENT SETTINGS WELL, SUCTIONED ANF ORAL CARE PROVIDED, HOB AT ALL TIMES FOR ASPIRATION PRECAUTIONS, ON ACUTE MEDICAL WRIST SOFT RESTRAINS, CIRCULATION WNL NO ABNORMALITY NOTED AT SITE, WITH PALPABLE BILATERAL PULSES NOTED, CALL LIGHT W/I REACH, WILL ENDORSE TO ONCOMING NURSE.
--- NOTE | 2017-11-21 07:10 | NUR ---
RN NOTES, RECEIVED PT ON BED, A/Ox1, MOUTH WORDS , TRACH /VENT DEPENDENT , TOLERATING CURRENT VENT SETTING WELL, TRACH CARE DONE, O2 SAT 98%, NO DISTRESS NOTED , L UA MIDLINE INTACT AND PATENT, F/C DRAINING TO GRAVITY WITH YELLOW URINE ,COLOSTOMY IN PLACE WITH MINIMAL AMOUNT OF SEMI-LIQUID STOOL. GLYTROL RUNNING AT 70CC/HR VIA GT , TOLERATED WELL, NO RESIDUAL NOTED, HOB ELEVATED AT ALL TIMES FOR ASPIRATION PRECAUTIONS, CALL LIGHT WITHIN EASY REACH, BED LOCKED AND IN LOWEST POSITION , WILL CONTINUE TO MONITOR CLOSELY.
[2017-11-21 08:00] VITALS: BP 138/76
[2017-11-21] MEDS: CEFEPIME 1 GM in IV NS 0.9% 50 ML IV SCH ×2 (08:31→22:28)
[2017-11-21] MEDS: SPIRONOLACTONE 25 MG TABLET PO SCH (08:32)
[2017-11-21] MEDS: DOCUSATE SODIUM LIQ 100 MG/10 ML UDC GT SCH ×2 (08:32→16:56)
[2017-11-21] MEDS: PANTOPRAZOLE 40 MG VIAL IV SCH (08:32)
[2017-11-21] MEDS: HEPARIN SODIUM, PORCINE 5000 UNITS/1 ML VIAL SQ SCH ×2 (08:32→22:00)
[2017-11-21] MEDS: DOXYCYCLINE HYCLATE (100 MG) 100 MG TABLET PO SCH ×2 (08:32→21:43)
--- NOTE | 2017-11-21 09:37 | NUR ---
RN NOTES [employer] NOTIFIED REGARDING INTERROGATION OF THE PAIN PUMP. SPOKEN TO PHIL COLLIER .SOME ONE WILL BE SENT TO [facility] TO INTERROGATE THE PUMP TODAY PER PHIL .
[2017-11-21 12:00] VITALS: BP 111/60
--- NOTE | 2017-11-21 12:00 | NUR ---
RN NOTES TRACH SUCTIONING DONE, TOLERATING TF WELL, NO DISTRESS NOTED , CONTINUE TO MONITOR.
[2017-11-21 16:00] VITALS: BP_SYST 120; BP_SYST 138; BP_DIAS 62; BP_DIAS 77
--- NOTE | 2017-11-21 17:00 | NUR ---
RN NOTES [employer] TECH AT THE BEDSIDE TO DO INTERROGATION OF THE PAIN PUMP , DR MILLER NOTIFIED REGARDING PAIN PUMP PRESCRIPTION .
--- NOTE | 2017-11-21 18:20 | NUR ---
RN NOTE PT REMAINS THE SAME , NO SIGNIFICANT CHANGES NOTED ON THIS SHIFT, SR UP x3, CALL LIGHT WITHIN EASY REACH. WILL ENDORSE TO IT APPLICATION ARCHITECT NURSE FOR TALHA.
[2017-11-21] MEDS: GABAPENTIN 300 MG CAPSULE GT SCH (19:46)
[2017-11-21 20:00] VITALS: BP 158/81
--- NOTE | 2017-11-21 20:30 | NUR ---
CALCINER FEEDER INITIAL NOTES RECEIVED PATIENT AWAKE A/OX3, ABLE TO MAKE NEEDS KNOWN. PATIENT VENT DEPENDENT, ABLE TO MOUTH NEEDS. C/O 06/20 PAIN, PATIENT STATES IT'S CONSTANT AND HE JUST RECEIVED HIS PAIN MEDICATION. PATIENT STATES HE'S ABLE TO WAIT TIL HIS NEXT DUE PAIN MEDICATION. NO FACIAL GRIMACING NOTED, PATIENT RELAXED. NO RESPIRATORY DISTRESS NOTED, ON VENT SETTINGS AC 18, TV 500, FIO2 40%, PEEP 5, SPO2 100%. NOTED WITH TRACHEAL LEAK, CLEANED AND DRESSING CHANGED. TRACHEAL STOMA BIG. ON TELE MONITOR SR. WITH F/C PATENT AND INTACT, DRAINING BY GRAVITY. GT PATENT AND INTACT, IN PLACE, NO RESIDUALS NOTED. COLOSTOMY BAG IN PLACE. WITH LEFT WRIST SOFT RESTRAINT IN PLACE. CIRCULATION CHECKED. HOB ELEVATED. SIDE RAILS UP AND LOCKED. BED KEPT AT LOWEST POSITION. CALL LIGHT KEPT WITHIN EASY REACH. WILL CONTINUE TO MONITOR.
[2017-11-21] MEDS: GLYTROL 1,000 ML BAG GT PRN (21:41)
[2017-11-21] MEDS: ACETAMINOPHEN 650 MG/20.3 ML UDC PO PRN (21:43)
[2017-11-21] MEDS: OLANZAPINE 5 MG TABLET GT SCH (21:43)
--- NOTE | 2017-11-21 22:00 | NUR ---
RESTRAINT REMOVED, EDUCATED PATIENT THE NEED FOR RESTRAINT DUE TO PULLING ON LINES, PATIENT AWAKE AND ALERT AND VERBALIZED UNDERSTANDING HE WILL NOT PULL ON LINES, WILL KEEP RESTRAINTS OFF AT THIS TIME. WILL CONTINUE TO MONITOR.
--- NOTE | 2017-11-21 22:25 | NUR ---
BILINGUAL PATIENT SUPPORT CASEWORKER NOTES PATIENT REQUESTED FOR BREATHING TX. INFORMED JOVANNY, WITH OK TO CONTINUE BREATHING TX ORDERS FROM FACILITY. NOTED AND CARRIED OUT. INFORMED RT. WILL CONTINUE TO MONITOR.
[2017-11-21] MEDS: LATANOPROST EYE DROP 0.005% 2.5 ML BOTTLE EACHEYE SCH (22:28)
[2017-11-21] MEDS ORDERED: IPRATROPIUM NEB FS 0.5 MG/2.5 ML AMPUL.NEB ONE (22:57)
[2017-11-21] MEDS ORDERED: IPRATROPIUM NEB FS 0.5 MG/2.5 ML AMPUL.NEB NEB PRN ×2 (23:00→23:21)
[2017-11-21] MEDS ORDERED: ALBUTEROL FS 2.5 MG/3 ML VIAL.NEB NEB PRN (23:00)
[2017-11-22] VITALS: BP_SYST 119; BP_SYST 150; BP_DIAS 62; BP_DIAS 70
[2017-11-22] MEDS: MORPHINE SULFATE INJ 4 MG/ML DISP.SYRIN IV PRN ×5 (00:29→20:54)
[2017-11-22] MEDS: ZOLPIDEM TARTRATE 5 MG TABLET PO PRN (00:41)
[2017-11-22] MEDS: BLOOD SUGAR DIAGNOSTIC 1 EACH STRIP IN SCH ×4 (00:42→17:21)
[2017-11-22] MEDS: IPRATROPIUM NEB FS 0.5 MG/2.5 ML AMPUL.NEB NEB SCH ×4 (01:12→19:59)
[2017-11-22] MEDS: ALBUTEROL FS 2.5 MG/3 ML VIAL.NEB NEB SCH ×4 (01:12→19:59)
[2017-11-22 04:00] VITALS: BP 164/85
--- NOTE | 2017-11-22 05:24 | NUR ---
NOTED PATIENT WITH BP 168/95, ASYMPTOMATIC. PRN HYDRALAZINE IVP GIVEN. WILL CONTINUE TO MONITOR.
[2017-11-22] MEDS: hydrALAZINE HCL IV 20 MG VIAL IV PRN (05:27)
--- NOTE | 2017-11-22 06:20 | NUR ---
PATROL COMMUNITY SERVICE OFFICER NOTES RECHECKED BP, 108/60. NO SIGNIFICANT CHANGES OVERNIGHT. PAIN MONITORED AND MANAGED NEEDED. NO RESPIRATORY DISTRESS NOTED, TOLERATED VENT SETTINGS. TRACH CARE DONE. TOLERATED GTF. F/C PATENT AND INTACT, DRAINING BY GRAVITY. PATIENT AWAKE, ALERT AND COOPERATIVE. DID WELL WITHOUT RESTRAINT OVERNIGHT. KEPT CLEAN AND DRY. WOUND TX PROVIDED. TURNED AND REPOSITIONED Q2 AND PRN. HOB ELEVATED. SIDE RAILS UP AND LOCKED. BED KEPT AT LOWEST POSITION. CALL LIGHT KEPT WITHIN EASY REACH. CONTINUITY OF CARE ENDORSED TO AM NURSE.
--- NOTE | 2017-11-22 07:12 | NUR ---
RN INITIAL NOTES: REC'D PT AWAKE ON BED, A/O X 3, ABLE TO MOUTH WORDS. ON MV VIA TRACH, NO SOB. ON TELEMONITOR, SR. HAS MONALISA MIDLINE & L HAND G22, SL, BOTH FLUSHING WELL PATENT & INTACT W/ NO S/SX OF INFECTION/INFILTRATION NOTED. HAS GT, ON CONT TF GLYTROL X 70 CC/HR INFUSING WELL. HAS FC DRAINING TO ADEQUATE URINE OUTPUT. HAS COLOSTOMY BAG IN PLACE. PROVIDED COMFORT & SAFETY MEASURES. BED KEPT LOW & IN LOCKED POS. CALL LIGHT PLACED W/IN REACH. WILL CONTINUE TO MONITOR & ATTEND PT NEEDS.
[2017-11-22 08:00] VITALS: BP 110/71
[2017-11-22] MEDS: CEFEPIME 1 GM in IV NS 0.9% 50 ML IV SCH ×2 (09:22→21:07)
[2017-11-22] MEDS: GABAPENTIN 300 MG CAPSULE GT SCH ×2 (09:22→17:21)
[2017-11-22] MEDS: DOXYCYCLINE HYCLATE (100 MG) 100 MG TABLET PO SCH ×2 (09:22→21:07)
[2017-11-22] MEDS: SPIRONOLACTONE 25 MG TABLET PO SCH (09:22)
[2017-11-22] MEDS: PANTOPRAZOLE 40 MG VIAL IV SCH (09:22)
[2017-11-22] MEDS: DOCUSATE SODIUM LIQ 100 MG/10 ML UDC GT SCH ×2 (09:22→17:21)
[2017-11-22] MEDS: Z GUARD REMEDY 2 OZ OINT TP PRN (09:23)
[2017-11-22] MEDS: HEPARIN SODIUM, PORCINE 5000 UNITS/1 ML VIAL SQ SCH (09:29)
[2017-11-22] MEDS: LORAZEPAM INJ 2 MG/ML VIAL IV PRN (11:45)
[2017-11-22] MEDS: INSULIN REGULAR, HUMAN 100 UNIT/ML 3 ML VIAL SQ PRN ×2 (11:58→17:22)
[2017-11-22 12:00] VITALS: BP 145/80
[2017-11-22] MEDS: GLYTROL 1,000 ML BAG GT PRN (15:49)
[2017-11-22 16:00] VITALS: BP 108/63
--- NOTE | 2017-11-22 16:26 | NUR ---
RECEIVED PT TRACH ON VENT, WITH NOTED SETTINGS. COLOR RECEIVER DONE AND TRACH IS SECURE. VENT ALARMS CHECKED AND AUDIBLE. VENT PLUGGED IN RED OUTLET. AMBU BAG NOTED AT HOB. SX WITH MOD [employer] KEITA SECRETIONS. NO RESP DISTRESS NOTED AT THIS TIME. Addendum: 11/22/17 at 1626 by CHIDI JUAREZ RT Amended: Links added.
--- NOTE | 2017-11-22 18:38 | NUR ---
RN CLOSING NOTES: NO ACUTE CHANGES NOTED W/IN SHIFT. PT TOLERATED MV SETTINGS VIA TRACH. ON TELEMONITOR, STILL SR. MONALISA MIDLINE & L HAND G22, SL, KEPT PATENT & INTACT W/ NO S/SX OF INFECTION/INFILTRATION NOTED. GTF TOLERATED WELL - GLYTROL X 70 CC/HR INFUSING WELL, NO RESIDUAL NOTED W/IN SHIFT. FC KEPT PATENT & INTACT DRAINING TO ADEQUATE URINE OUTPUT. COLOSTOMY BAG KEPT IN PLACE, DRAINED OUTPUT. KEPT WELL RESTED. NEEDS ATTENDED. BED KEPT LOW & IN LOCKED POS. CALL LIGHT PLACED W/IN REACH. WILL ENDORSE TO PM RN FOR TALHA. PT NEEDS TO BE NPO POST MN FOR SCHEDULED HIDA SCAN PARAM (PER CASSANDRA, AROUND 12NN).
[2017-11-22 20:00] VITALS: BP 140/78
[2017-11-22] MEDS: OLANZAPINE 5 MG TABLET GT SCH (21:07)
[2017-11-22] MEDS: LATANOPROST EYE DROP 0.005% 2.5 ML BOTTLE EACHEYE SCH (21:08)
[2017-11-23] VITALS: BP 119/62
[2017-11-23] MEDS: ALBUTEROL FS 2.5 MG/3 ML VIAL.NEB NEB SCH ×4 (02:05→19:39)
[2017-11-23] MEDS: IPRATROPIUM NEB FS 0.5 MG/2.5 ML AMPUL.NEB NEB SCH ×4 (02:05→19:39)
[2017-11-23 04:00] VITALS: BP 142/81
[2017-11-23] MEDS: LORAZEPAM INJ 2 MG/ML VIAL IV PRN ×2 (04:25→10:29)
[2017-11-23] MEDS: BLOOD SUGAR DIAGNOSTIC 1 EACH STRIP IN SCH ×4 (06:52→18:00)
--- NOTE | 2017-11-23 07:00 | NUR ---
RN NOTES: RECEIVED PT ON BED, A/O X 3, ABLE TO MOUTH WORDS. VENT/ TRACH DEPENDENT, TRACH CARE DONE, NO DISTRESS NOTED, TOLERATING CURRENT VENT SETTING WELL , ON TELE SR HR IN 80'S , MONALISA MIDLINE & L HAND G22 SITES CDI, GLYTROL RUNNING AT 70 CC/HR VIA GT WELL NO RESIDUAL NOTED, FC DRAINING TO GRAVITY WITH ADEQUATE URINE OUTPUT. COLOSTOMY BAG IN PLACE. BED LOCKED AND IN LOWEST POSITION , CALL LIGHT WITHIN EASY REACH. WILL CONTINUE TO MONITOR CLOSELY.
[2017-11-23 07:37] LABS: BASOPHILS % (AUTO) 0.3 % (0.0-2.0); EOSINOPHILS # (AUTO) 0.2 /CMM (0.0-0.7); EOSINOPHILS % (AUTO) 2.1 % (0.0-6.0); HEMATOCRIT 25 % (39-51); HEMOGLOBIN 8.1 g/dL (13.5-17.5); LYMPHOCYTES # (AUTO) 1.5 /CMM (0.8-4.8); LYMPHOCYTES % (AUTO) 19.1 % (20.0-44.0); MEAN CORPUSCULAR HEMOGLOBIN 29 PG (26.0-33.0); MEAN CORPUSCULAR HGB CONC 33 g/dl (31.0-36.0); MEAN CORPUSCULAR VOLUME 88 fL (80-96); MONOCYTES # (AUTO) 0.6 /CMM (0.1-1.30); MONOCYTES % (AUTO) 7.6 % (2.0-12.0); NEUTROPHILS # (AUTO) 5.6 /CMM (1.8-8.9); NEUTROPHILS % (AUTO) 70.9 % (43.0-81.0); PLATELET COUNT (AUTO) 304 /CMM (150-450); RDW COEFFICIENT OF VARIATION 16.2 (11.5-15.0); RED BLOOD CELL COUNT(AUTO) 2.83 MIL/uL (4.5-6.0); WHITE BLOOD COUNT (AUTO) 7.8 K/uL (4.3-11.0)
[2017-11-23 07:52] LABS: ALBUMIN 2.4 g/dL (3.4-5.0); BILIRUBIN,DIRECT 0.1 mg/dL (0.0-0.2); BILIRUBIN,TOTAL 0.2 mg/dL (0.2-1.0); CALCIUM, SERUM 9.1 mg/dL (8.5-10.1); CREATININE 0.6 mg/dL (0.6-1.3); MAGNESIUM 1.5 mg/dL (1.8-2.4); PHOSPHORUS 3.2 mg/dL (2.5-4.9); TOTAL PROTEIN, SERUM 7.3 g/dL (6.4-8.2)
[2017-11-23 07:59] LABS: POTASSIUM 2.7 mmol/L (3.5-5.1)
[2017-11-23 08:00] VITALS: BP 104/66
[2017-11-23] MEDS: PANTOPRAZOLE 40 MG VIAL IV SCH (08:43)
[2017-11-23] MEDS: CEFEPIME 1 GM in IV NS 0.9% 50 ML IV SCH ×2 (08:43→21:36)
--- NOTE | 2017-11-23 08:52 | NUR ---
RN NOTES DR HOSKINS NOTIFIED REGARDING K=2.7, NEW ORDER GIVEN
[2017-11-23] MEDS: GABAPENTIN 300 MG CAPSULE GT SCH ×2 (09:00→17:32)
[2017-11-23] MEDS: DOCUSATE SODIUM LIQ 100 MG/10 ML UDC GT SCH ×2 (09:00→17:32)
[2017-11-23] MEDS: SPIRONOLACTONE 25 MG TABLET PO SCH (09:00)
[2017-11-23] MEDS ORDERED: POTASSIUM CHLORIDE 10 MEQ/50 ML PREMIXED IVPB FOR PERIPHERAL LINE IV ONE (09:00)
[2017-11-23] MEDS: DOXYCYCLINE HYCLATE (100 MG) 100 MG TABLET PO SCH ×2 (09:00→21:36)
[2017-11-23] MEDS ORDERED: POTASSIUM CL. PREMIX PERIPHER. 50 ML IV SCH (09:30)
[2017-11-23] MEDS: POTASSIUM CL. PREMIX PERIPHER. 50 ML IV SCH ×4 (10:33→13:39)
[2017-11-23] MEDS: Magnesium 1GM/D5W 100ML PREMIX 100 ML IV SCH ×2 (10:38→11:52)
[2017-11-23] MEDS ORDERED: MORPHINE MC PRN (11:00)
[2017-11-23] MEDS ORDERED: [UNRECOGNIZED DRUG - REMARK] MC PRN (11:00)
--- NOTE | 2017-11-23 11:02 | NUR ---
RN NOTES PT ENDORSED TO JACOB WALKER FOR TALHA .
--- NOTE | 2017-11-23 11:15 | NUR ---
LIFE ENRICHMENT DIRECTOR NOTES RECEIVED PATIENT FROM NATHAN, PATIENT AWAKE ALERT, ON VENT TRACH SETTINGS. NO SOB OR DISTRESS NOTED. CURRENT STATUS NPO. GT SITE INTACT AND PATENT. WITH COLOSTOMY BAG WITH SOFT STOOL. F/C INTACT CLEAR AND YELLOW COLOR. LEFT UA MIDLINE AND LEFT HAND IV SITE INTACT. BED LOCK AND LOW POSITION. PLACED CALL LIGHT WITH IN REACH. WILL CONTINUE TO MONITOR
[2017-11-23 12:00] VITALS: BP 104/66
[2017-11-23] MEDS: ACETAMINOPHEN 650 MG/20.3 ML UDC PO PRN (13:38)
--- NOTE | 2017-11-23 13:56 | NUR ---
RN NOTE PATIENT LEFT WITH X-RAY TECH AND RT TO HIDA SCAN ORDERED
[2017-11-23 16:00] VITALS: BP 100/56
[2017-11-23] MEDS: MORPHINE SULFATE INJ 4 MG/ML DISP.SYRIN IV PRN (17:32)
--- NOTE | 2017-11-23 17:34 | NUR ---
GUARD RAIL INSTALLER NOTE HIDA SCAN DONE ORDERED ,C\O PAIN ON ABDOMEN BP 100/58 SAT97% MORPHINE 2 MG IVP GIVEN
[2017-11-23] MEDS: INSULIN REGULAR, HUMAN 100 UNIT/ML 3 ML VIAL SQ PRN (17:38)
--- NOTE | 2017-11-23 19:09 | NUR ---
TELERN NOTE FEELS BETTER AFTER MORPHINE WAS GIVEN
--- NOTE | 2017-11-23 19:45 | NUR ---
RN INITIAL NOTE RECEIVED PT IN NO ACUTE DISTRESS IN BED. PT IS A/O X 4 AND ABLE TO MAKE NEEDS KNOWN. PT IS ON MECHAICAL VENT VIA TRACH. TRACH SITE IS CLEAN DRY AND INTACT. PT TOLERATING VENT SETTING WELL. PT NOT SHOWING ANY S/S OF SOB OR DIFFICULTY BREATHING. PT STATING HE HAS PAIN. PAIN MANAGEMENT INITIATED. PT IS ON TELE WITH SR ON THE MONITOR. PT HAS COLOSTOMY BAG WITH STOOL DRAINING INTO BAG. PT HAS F/C THAT IS CLEAN DRY INTACT AND PATENT WITH URINE DRAINING. PT HAS GTUBE THAT IS CLEAN DRY INTACT AND PATENT WITH GLYTROL @ 70ML/HR. PT HAS MONALISA MIDLINE THAT IS CLEAN DRY INTACT AND PATENT WITH SALINE FLUSH. PT HAS LHAND 22G THAT IS CLEAN DRY INTACT AND PATENT WITH SALINE FLUSH. BED IN LOW LOCK POSITION WITH RIALS UP X 2. CALL LIGHT WITHIN REACH AND ALL SAFETY MEASURES ENSURED AND CARRIED OUT. WILL CONTINUE TO MONITOR.
[2017-11-23 20:00] VITALS: BP 110/73
[2017-11-23] MEDS: OLANZAPINE 5 MG TABLET GT SCH (21:36)
[2017-11-23] MEDS: LATANOPROST EYE DROP 0.005% 2.5 ML BOTTLE EACHEYE SCH (21:37)
[2017-11-24] VITALS: BP 127/78
[2017-11-24] MEDS: BLOOD SUGAR DIAGNOSTIC 1 EACH STRIP IN SCH ×5 (00:58→23:19)
[2017-11-24] MEDS: ALBUTEROL FS 2.5 MG/3 ML VIAL.NEB NEB SCH ×4 (01:03→20:05)
[2017-11-24] MEDS: IPRATROPIUM NEB FS 0.5 MG/2.5 ML AMPUL.NEB NEB SCH ×4 (01:04→20:04)
[2017-11-24] MEDS: GLYTROL 1,000 ML BAG GT PRN (03:49)
[2017-11-24 04:00] VITALS: BP 100/63
[2017-11-24] MEDS: LORAZEPAM INJ 2 MG/ML VIAL IV PRN (04:00)
[2017-11-24] MEDS: MORPHINE SULFATE INJ 4 MG/ML DISP.SYRIN IV PRN ×2 (04:00→15:49)
--- NOTE | 2017-11-24 06:26 | NUR ---
RN NOTE PT REMAINS IN NO ACUTE DISTRESS IN BED. PT DID NOT HAVE ANY SIGNIFICANT CHANGE IN CONDITION DURING SHIFT. ALL NEEDS MET, ALL ORDERS CARRIED OUT. WILL ENDORSE CARE TO AM RN FOR CONTINUITY OF CARE.
[2017-11-24 07:39] LABS: CALCIUM, SERUM 8.6 mg/dL (8.5-10.1); CREATININE 0.6 mg/dL (0.6-1.3); MAGNESIUM 1.8 mg/dL (1.8-2.4); POTASSIUM 3.4 mmol/L (3.5-5.1)
--- NOTE | 2017-11-24 07:55 | NUR ---
RN INITIAL NOTES RECEIVED PATIENT, PATIENT AWAKE ALERT, HE IS ABLE TO VERBALIZE AND WRITE THINGS DOWN. ON VENT TRACH SETTINGS. HOB ELEVATED, NO SOB OR DISTRESS NOTED. ON WIRE MESH FILTER FABRICATOR WITH SINUS RHYTHM HR OF 78. GT FEEDING IN PLACE GLYTROL @70ML/HR WELL TOLERATED, NO RESIDUAL NOTED. GT SITE INTACT AND PATENT. WITH COLOSTOMY BAG WITH SOFT STOOL. F/C INTACT AND PATENT CLEAR AND YELLOW COLOR. LEFT UA MIDLINE AND LEFT HAND IV SITE INTACT AND PATENT. BED LOCK AND LOW POSITION. PLACED CALL LIGHT WITH IN REACH. WILL CONTINUE TO MONITOR
[2017-11-24 08:00] VITALS: BP 113/77
[2017-11-24] MEDS: DOXYCYCLINE HYCLATE (100 MG) 100 MG TABLET PO SCH ×2 (09:04→21:22)
[2017-11-24] MEDS: SPIRONOLACTONE 25 MG TABLET PO SCH (09:04)
[2017-11-24] MEDS: DOCUSATE SODIUM LIQ 100 MG/10 ML UDC GT SCH ×2 (09:04→16:08)
[2017-11-24] MEDS: GABAPENTIN 300 MG CAPSULE GT SCH ×2 (09:04→16:08)
[2017-11-24] MEDS: PANTOPRAZOLE 40 MG VIAL IV SCH (09:04)
[2017-11-24] MEDS ORDERED: POTASSIUM CHLORIDE 20 MEQ TAB.PRT.SR PO SCH (11:00)
[2017-11-24 12:00] VITALS: BP 136/79
[2017-11-24] MEDS: INSULIN REGULAR, HUMAN 100 UNIT/ML 3 ML VIAL SQ PRN ×2 (12:00→17:04)
--- NOTE | 2017-11-24 13:00 | NUR ---
RN NOTE MD MANZO) ORDER OBTAINED FOR PATIENT TO HAVE A SPEECH EVALUATION. CARRIED OUT AND NOTED
[2017-11-24 16:00] VITALS: BP 132/62
--- NOTE | 2017-11-24 17:43 | NUR ---
RT RECEIVED PT TRACH'D WITH PORTEX #8 CUFFED. [facility] WITH [facility]TINGS PER MD ORDER. DIRECTOR INSURANCE DONE. BILATERAL RHONCHI BREATH SOUNDS ON AUSCULTATION. SUCTIONED LARGE AMOUNTS OF SEMI-THICK WHITE/KEITA SECRETIONS. VENT PLUGGED INTO RED OUTLET. ALARMS ON AND WORKING PROPERLY. AMBU BAG AT HEAD OF BED. NO SOB OR SIGNS OF DISTRESS NOTED AT THIS TIME. WILL CONTINUE TO MONITOR THE PATIENT FOR ANY CHANGES.
--- NOTE | 2017-11-24 18:50 | NUR ---
RN NOTE PATIENT REMAINED IN STABLE CONDITION THROUGHOUT THE SHIFT. ALL NEEDS MET. PATIENT IN NO DISTRESS TOLERATING VENT SETTINGS. PATIENT CLEANED, TURNED, AND REPOSITIONED. . NO SIGNIFICANT CHANGES NOTED. WILL ENDORSE TO ONCOMING SHIFT.
--- NOTE | 2017-11-24 19:30 | NUR ---
WRAPPER STEMMER OPERATOR NOTE: PATIENT RESTING IN BED, NO ACUTE DISTRESS NOTED. BREATHING EVEN AND UNLABORED, NO SOB NOTED. VENT SETTINGS IN PLACE. TELE READING SR 72. MIDLINE TO MONALISA IN PLACE. VALEAR CATHETER IN PLACE DRAINING CLEAR YELLOW URINE. G-TUBE IN PLACE, WITH 5ML OF RESIDUAL, INFUSING GLYTROL AT 70 ML/HR. HOB ELEVATED. ISOLATION PRECAUTIONS OBSERVED. NO S/S OF HYPER/HYPOGLYCEMIA NOTED. BED LOCKED AND IN LOWEST POSITION, CALL LIGHT IN REACH. WILL CONTINUE TO MONITOR.
[2017-11-24 20:30] VITALS: BP 102/60
[2017-11-24] MEDS: OLANZAPINE 5 MG TABLET GT SCH (21:22)
[2017-11-24] MEDS: LATANOPROST EYE DROP 0.005% 2.5 ML BOTTLE EACHEYE SCH (21:23)
[2017-11-24] MEDS: ACETAMINOPHEN 650 MG/20.3 ML UDC PO PRN (23:19)
[2017-11-24] MEDS: ZOLPIDEM TARTRATE 5 MG TABLET PO PRN (23:19)
--- NOTE | 2017-11-24 23:30 | NUR ---
APPLICATION SUPPORT NOTE: PATIENT REQUEST FOR SLEEPING MEDICATION AND TYLENOL FOR HEADACHE. AMBIEN 5MG AND TYLENOL 650MG LIQUID GIVEN VIA G-TUBE PER MD ORDER. WILL CONTINUE TO MONITOR.
--- NOTE | 2017-11-24 23:36 | NUR ---
VASC TECH NOTE: PATIENT BLOOD SUGAR LEVEL 117 MG/DL, NO INSULIN NEEDED PER SLIDING SCALE. NO S/S OF HYPER/HYPOGLYCEMIA NOTED. WILL CONTINUE TO MONITOR.
[2017-11-25 00:30] VITALS: BP 88/48
[2017-11-25] MEDS: IPRATROPIUM NEB FS 0.5 MG/2.5 ML AMPUL.NEB NEB SCH ×4 (01:33→19:38)
[2017-11-25] MEDS: ALBUTEROL FS 2.5 MG/3 ML VIAL.NEB NEB SCH ×4 (01:33→19:37)
[2017-11-25] MEDS: MORPHINE SULFATE INJ 4 MG/ML DISP.SYRIN IV PRN ×4 (02:30→15:29)
--- NOTE | 2017-11-25 02:45 | NUR ---
CRANE MAN NOTE: PATIENT COMPLAINS OF SEVERE BACK PAIN 05/21, MORPHINE 2MG IV GIVEN PER MD ORDER. WILL CONTINUE TO MONITOR.
[2017-11-25 04:20] VITALS: BP 111/63
--- NOTE | 2017-11-25 04:57 | NUR ---
PT MARILYN'D ON MECHANICAL VENT. TREATMENTS GIVEN AND NO ADVERSE REACTION NOTED. SUCTION DONE THROUGHOUT SHIFT. PT MARILYN SECURE AND PATENT. ALARMS SET AND AUDIBLE. VANESSAU BAG AT [facility]. VENT PLUGGED INTO RED OUTLET. Addendum: 11/25/17 at 0459 by CHIDI JUAREZ RT Amended: Links added.
[2017-11-25] MEDS: ACETAMINOPHEN 650 MG/20.3 ML UDC PO PRN ×2 (05:26→17:08)
[2017-11-25] MEDS: GLYTROL 1,000 ML BAG GT PRN (05:27)
[2017-11-25] MEDS: BLOOD SUGAR DIAGNOSTIC 1 EACH STRIP IN SCH ×4 (05:51→23:20)
--- NOTE | 2017-11-25 06:30 | NUR ---
TILE SETTER NOTE: PATIENT RESTING IN BED, NO ACUTE DISTRESS NOTED. BREATHING EVEN AND UNLABORED, NO SOB NOTED. VENT SETTINGS IN PLACE. TELE READING SR 70. MIDLINE TO MONALISA IN PLACE. VALERA CATHETER IN PLACE DRAINED 1100ML OF CLEAR YELLOW URINE. G-TUBE IN PLACE, INFUSING GLYTROL AT 70 ML/HR. HOB ELEVATED. ISOLATION PRECAUTIONS OBSERVED. PATIENT BLOOD SUGAR LEVEL 77 M/DL, NO S/S OF HYPER/HYPOGLYCEMIA NOTED. BED LOCKED AND IN LOWEST POSITION, CALL LIGHT IN REACH. WILL ENDORSE TO DAY NURSE TO CONTINUE
--- NOTE | 2017-11-25 07:10 | NUR ---
COAL TRAM DRIVER NOTE: PATIENT COMPLAINS OF SEVERE BACK PAIN 05/21, MORPHINE 2MG IV GIVEN PER MD ORDER. WILL CONTINUE TO MONITOR.
--- NOTE | 2017-11-25 07:30 | NUR ---
WOODEN FURNITURE POLISHER INITIAL NOTES RECEIVED PATIENT IN BED, NO SIGNS OF DISTRESS ON VENT SETTINGS ORDERED, SATURATING WELL, AOX3 ABLE TO MOUTH WORDS AND WRITE DOWN NEEDS ON PAPER, ON TELE MONITORING 76 HR SR, FC TO GRAVITY, COLOSTOMY BAG IN PLACE, GTUBE FEEDINGS @ 70 ML/HR, NO RESIDUAL NOTED, HOB ELEVATED, MONALISA MIDLINE TKO NS, CLEAN AND PATENT, CO OF PAIN MEDICATIONS GIVEN BY ENAMEL DIPPER IN THE LAST 30 MINUTES., REPOSITIONED FOR COMFORT, WILL CONTINUE MONITOR AND BED IN LOW AND LOCKED POSITION CALL LIGHT WITHIN REACH.
[2017-11-25 07:34] LABS: CALCIUM, SERUM 8.6 mg/dL (8.5-10.1); CREATININE 0.7 mg/dL (0.6-1.3); MAGNESIUM 1.7 mg/dL (1.8-2.4); POTASSIUM 3.4 mmol/L (3.5-5.1)
[2017-11-25 08:00] VITALS: BP 96/49
--- NOTE | 2017-11-25 08:30 | NUR ---
ACCOUNTANT MACHINE PROCESSING NOTES PATIENT BP ELEVATED TO [address] ANDRADE AND [address] SORENSEN MADE AWARE. Addendum: 11/25/17 at 1928 by GURJIT BELCHER RN WRONG PATIENT
[2017-11-25] MEDS: DOXYCYCLINE HYCLATE (100 MG) 100 MG TABLET PO SCH ×2 (08:33→21:55)
[2017-11-25] MEDS: GABAPENTIN 300 MG CAPSULE GT SCH ×2 (08:33→17:08)
[2017-11-25] MEDS: DOCUSATE SODIUM LIQ 100 MG/10 ML UDC GT SCH ×2 (08:33→17:00)
[2017-11-25] MEDS: PANTOPRAZOLE 40 MG VIAL IV SCH (08:33)
[2017-11-25] MEDS: SPIRONOLACTONE 25 MG TABLET PO SCH (08:34)
[2017-11-25] MEDS: Magnesium 1GM/D5W 100ML PREMIX 100 ML IV SCH ×2 (11:14→12:39)
[2017-11-25] MEDS ORDERED: POTASSIUM CHLORIDE 20 MEQ POWDER PACKET GT ONE (11:30)
[2017-11-25 12:00] VITALS: BP 94/53
[2017-11-25] MEDS ORDERED: GABA300C GT (12:31)
[2017-11-25] MEDS ORDERED: DOXY100T2 PO (12:31)
[2017-11-25] MEDS: CLONIDINE HCL 0.1MG/24H PTWK 1 EA PATCH TD SCH (12:39)
--- NOTE | 2017-11-25 13:10 | NUR ---
RT NOTE: LATE ENTRY-@1245-AWAKE AND ALERT PATIENT PLACED ON PMV WITH CUFF COMPLETELY DEFLATED FOR LUNCH. @1307- PATIENT TAKEN OFF PMV AND CUFF INFLATED. INTERNAL MEDICINE PHYSICIAN ASSISTANT DONE. PATIENT TOLERATED WELL WITH NO DISTRESS. WILL CONTINUE TO MONITOR.
[2017-11-25 16:00] VITALS: BP 109/63
--- NOTE | 2017-11-25 19:30 | NUR ---
TURBO ELECTRIC OPERATOR NOTES PATIENT DC PAPERWORK DONE, DISCHARGE TEACHING DONE, REPORT GIVEN TO [facility] TO [facility], BELONGINGS LIST SIGNED, PHOTOS OF WOUNDS TAKEN, FAMILY MADE AWARE. PATIENT UNABLE TO LEAVE AT THIS TIME DUE TO LOWERED BP SYSTOLIC IN 80S DR HOSKINS AND SNF MADE AWARE, PATIENT ON WILL CALL FOR POSSIBLE DC LATER TONIGHT REPORT GIVEN TO AARON RODRIGUEZ FOR CONTINUITY OF CARE.
[2017-11-25 20:00] VITALS: BP 110/77
--- NOTE | 2017-11-25 20:00 | NUR ---
RN INITIAL NOTES RECEIVED PATIENT IN BED, NO SIGNS OF DISTRESS ON VENT SETTINGS ORDERED, SATURATING WELL, AOX3 ABLE TO MOUTH WORDS AND WRITE DOWN NEEDS ON PAPER, ON TELE MONITORING 76 HR SR, FC TO GRAVITY, COLOSTOMY BAG IN PLACE, GTUBE FEEDINGS @ 70 ML/HR, NO RESIDUAL NOTED, HOB ELEVATED, MONALISA MIDLINE TKO NS, CLEAN AND PATENT REPOSITIONED FOR COMFORT. PT WAS SCHEDULED TO BE TRANSFERRED TO [facility], BUT WAS UNABLE TO BE TRANSFERRED BECAUSE HIS B/P WAS TOO LOW. DR HOSKINS WAS NOTIFIED. BED IN LOW AND LOCKED POSITION, CALL LIGHT WITHIN REACH. I WILL CONT TO MONITOR.
[2017-11-25] MEDS ORDERED: IV NS 0.9% 500 ML IV ONE (20:30)
--- NOTE | 2017-11-25 20:50 | NUR ---
menu planner note Received endorsement that patient is for discharge to SNF. cable coverer at bedside at change on shift, noted that the patient's SBP was in the 80s - 84/44. Patient's VS trend reviewed, patient's SBP has been in the 90s-100s. also per patient, he always had low BP. cable coverer left and patient was placed on Will-call for later discharge time. Patient's BP rechecked and noted to be 94/54 at 1940; at 1999, 110/77. Dr. Mensah with orders to give 500cc NS bolus. noted and carried out. patient's BP rechecked and is 125/89, 75. EMT was called for pick-up, ETA is 2230.
[2017-11-25] MEDS: OLANZAPINE 5 MG TABLET GT SCH (21:55)
[2017-11-25] MEDS: LATANOPROST EYE DROP 0.005% 2.5 ML BOTTLE EACHEYE SCH (21:57)
--- NOTE | 2017-11-25 23:25 | NUR ---
BIOMEDICAL SPECIALIST NOTES PT WAS TRANSFERRED TO [facility] @8257. PT B/P WAS 110/77. 500L BOLUS WAS GIVEN PER MD. MIDLINE REMOVED. BS 79. ALL TRANSFER ORDERS WERE CARRIED OUT, ALL REPORTS WERE GIVEN. PT LEFT FLOOR WITH AMBULANCE.
== END 2017-11-26 | DRG 870 ==
LOC: ER 18:05 → TELE1 20:44
PROVIDERS: ADMIT Internal Medicine; ATTEND Internal Medicine
PROC: 5A1955Z Respiratory Ventilation, Greater than 96 Consecutive Hours (ICD-10-PCS; principal; 2017-11-14)
PROC: 0D20XUZ Change Feeding Device in Upper Intestinal Tract, External Approach (ICD-10-PCS; 2017-11-18)
DX: A41.9 Sepsis, unspecified organism (principal); Z99.11 Dependence on respirator [ventilator] status; J18.9 Pneumonia, unspecified organism; J96.11 Chronic respiratory failure with hypoxia; E46 Unspecified protein-calorie malnutrition; N17.9 Acute kidney failure, unspecified; L89.159 Pressure ulcer of sacral region, unspecified stage; R53.2 Functional quadriplegia; N39.0 Urinary tract infection, site not specified; E87.1 Hypo-osmolality and hyponatremia; J44.0 Chronic obstructive pulmonary disease with (acute) lower respiratory infection; J98.11 Atelectasis; Z43.1 Encounter for attention to gastrostomy; Z93.0 Tracheostomy status; R10.9 Unspecified abdominal pain; R13.10 Dysphagia, unspecified; Z93.3 Colostomy status; B96.4 Proteus (mirabilis) (morganii) as the cause of diseases classified elsewhere; D50.9 Iron deficiency anemia, unspecified; D63.8 Anemia in other chronic diseases classified elsewhere; E83.41 Hypermagnesemia; F32.9 Major depressive disorder, single episode, unspecified; F41.9 Anxiety disorder, unspecified; G24.9 Dystonia, unspecified; Z79.891 Long term (current) use of opiate analgesic; K29.70 Gastritis, unspecified, without bleeding; K21.9 Gastro-esophageal reflux disease without esophagitis; I48.0 Paroxysmal atrial fibrillation; T83.018A Breakdown (mechanical) of other urinary catheter, initial encounter; Y84.8 Other medical procedures as the cause of abnormal reaction of the patient, or of later complication, without mention of misadventure at the time of the procedure; Y92.129 Unspecified place in nursing home as the place of occurrence of the external cause; E87.5 Hyperkalemia; E11.9 Type 2 diabetes mellitus without complications; L98.8 Other specified disorders of the skin and subcutaneous tissue; N31.9 Neuromuscular dysfunction of bladder, unspecified; G89.4 Chronic pain syndrome; B96.89 Other specified bacterial agents as the cause of diseases classified elsewhere; S51.011A Laceration without foreign body of right elbow, initial encounter; B96.5 Pseudomonas (aeruginosa) (mallei) (pseudomallei) as the cause of diseases classified elsewhere; I10 Essential (primary) hypertension; K80.20 Calculus of gallbladder without cholecystitis without obstruction; Y73.8 Miscellaneous gastroenterology and urology devices associated with adverse incidents, not elsewhere classified
CPT/HCPCS: 31720; 36415; 71045-TC; 76700-TC; 78226; 80048-TC; 80061-TC; 80076-TC; 82272-TC; 82962-TC; 83540-TC; 83605-TC; 83690-TC; 83735-TC; 84100-TC; 84484-TC; 85025-TC; 85730-TC; 87040-TC; 87070-TC; 87081-TC; 87086-TC; 87186-TC; 92611-TC; 94002-TC; 94003-TC; 94760-TC; 94762-TC; 99082-TC; A4216; A4217; A4606; A4623; A6402; A9537; C9113; J0360; J0692; J1644; J1815; J2060; J2270; J2405; J2543; J3475; J3480; J3490; J7030; J7040; J7042; J7050; J7060; Z7610